=== PATIENT | female | born 1995 | race Caucasian/White ===

== ENCOUNTER → 2024-09-16 | Emergency (ER) | payer OTHER ==
[~2024-09-16] VITALS: Ht 149.9 cm; Wt 63.5 kg
[2024-09-16 18:03] VITALS: BP 97/65; TEMP 98.9; O2SAT 100
== END | disposition left against medical advice (07) ==
LOC: ER 17:54
DX: R11.2 Nausea with vomiting, unspecified (principal); R10.9 Unspecified abdominal pain; Z53.21 Procedure and treatment not carried out due to patient leaving prior to being seen by health care provider